=== PATIENT | female | born 1965 | race Caucasian/White ===

== ENCOUNTER 2017-11-04 12:13 | Emergency (ER) | payer MEDICAID ==
--- NOTE | 2017-11-04 12:45 | Emergency Department Record ---
History of Present Illness - General Chief complaint: ENT Stated complaint: NOSE PAIN/ EYE SWOLLEN Time Seen by Provider: 11/04/17 12:29 Source: Patient Mode of Arrival: Ambulatory Limitations: No limitations - History of Present Illness Initial comments: The patient has had R sided nose pain for 2-3 days. She woke up this AM and thought her R eye was swollen but that has resolved. She also was looking in the R nares and felt there was an infection present. She denies any fever, chills, ST, cough or ear pain. MD complaint: Other Onset/Timin -: Days(s) Location: Nose Severity: Moderate Severity scale (1-10): 3 Quality: Aching Consistency: Constant - Related Data Home Medications Medication Instructions Recorded Confirmed Last Taken Albuterol Sulfate [Ventolin Hfa] 1 - 2 puff IH .EVERY 4-6 HRS PRN 11/04/1711/04 1 Day Ago ~11/03/17 Alprazolam [Xanax] 0.5 mg PO TID 11/04/17 11/04/17 1 Day Ago ~11/03/17 Budesonide/Formoterol Fumarate 1 puff IH BID 11/04/17 11/04/17 1 Day Ago [Symbicort 80-4.5 Mcg Inhaler] ~11/03/17 Bupropion HCl [Wellbutrin Sr] 200 mg PO DAILY 11/04/17 11/04/17 1 Day Ago ~11/03/17 Fluticasone Propionate [Flonase] 2 spray EACH NARES DAILY 11/04/17 11/04/17 1 Day Ago ~11/03/17 Glipizide [Glucotrol] 10 mg PO DAILY 11/04/17 11/04/17 1 Day Ago ~11/03/17 Hydrocodone/Acetaminophen [[place] 1 each PO QID 11/04/17 11/04/17 1 Day Ago 10-325 Tablet] ~11/03/17 Insulin Glargine,Hum.rec.anlog 50 unit SQ QPM 11/04/17 11/04/17 1 Day Ago [Basaglar Kwikpen U-100] ~11/03/17 Insulin Glargine,Hum.rec.anlog 100 unit SQ QAM 11/04/17 11/04/17 1 Day Ago [Basaglar Kwikpen U-100] ~11/03/17 Levothyroxine Sodium [Synthroid] 125 mcg PO DAILY 11/04/17 11/04/17 1 Day Ago ~11/03/17 Lisinopril [Prinivil] 5 mg PO DAILY 11/04/17 11/04/17 1 Day Ago ~11/03/17 Loratadine [Claritin] 10 mg PO DAILY 11/04/17 11/04/17 1 Day Ago ~11/03/17 Naproxen [Naprosyn] 500 mg PO Q12H 11/04/17 11/04/17 1 Day Ago ~11/03/17 Sertraline HCl [Zoloft] 250 mg PO DAILY 11/04/17 11/04/17 1 Day Ago ~11/03/17 Previous Rx's Medication Instructions Recorded Doxycycline Monohydrate [Mondoxyne 100 mg PO BID #20 capsule 11/04/17 Nl] Allergies Allergy/AdvReac Type Severity Reaction Status Date / Time No Known Drug Allergies Allergy Verified 11/04/17 12:29 Travel Screening - Travel/Exposure Within Last 30 Days Have you traveled within the last 30 days?: No - Travel/Exposure Within Last Year Have you traveled outside the [place] in the last year?: No - Additonal Travel Details Have you been exposed to anyone with a communicable illness?: No - Travel Symptoms Symptom Screening: None Review of Systems Constitutional: Denies: Chills, Fever Past Medical History - SOCIAL HISTORY Smoking Status: Never smoker Alcohol Use: None Drug Use: None - RESPIRATORY Hx Asthma: Yes Hx Sleep Apnea: Yes Hx of CPAP: Yes - CARDIOVASCULAR Hx Hypertension: Yes - NEURO Hx Neuro Disorders: No - GI Hx Reflux: Yes - Hx Genitourinary Disorders: No - ENDOCRINE Hx Diabetes: Yes Hx Thyroid Disease: Yes - MUSCULOSKELETAL Hx Arthritis: Yes - PSYCH Hx Anxiety: Yes - HEMATOLOGY/ONCOLOGY Hx Anemia: No Hx Cancer: No Family Medical History Any Significant Family History?: Yes Physical Exam - General General Appearance: Alert, Oriented x3, Cooperative, No acute distress - Head Head exam: Atraumatic, Normocephalic, Normal inspection - Eye Eye exam: Normal appearance, PERRL - ENT ENT exam: Normal exam (There is tenderness near the R nasolabial fold but no swelling or erythema.), Mucous membranes moist, Normal external ear exam, Normal orophraynx, TM's normal bilaterally Nasal Exam: Normal inspection (There is no obvious intranasal abscess present. There is no swelling, erythema, or edema.). negative: Active bleeding, Discharge, Sinus tenderness Throat exam: Normal inspection. negative: Tonsillar erythema, Tonsillar exudate - Neck Neck exam: Normal inspection, Full ROM. negative: Lymphadenopathy, Meningismus , Tenderness Course Vital Signs 11/04/17 12:21 Temperature 98.5 F Pulse Rate 97 H Respiratory 16 Rate Blood Pressure 134/98 Pulse Ox 97 - Reevaluation(s) Reevaluation #1: I explained to the patient that I do not see anything in her nose to drain but that we will treat her with Doxycycline for a possible early infection. 11/04/17 12:55 Disposition Disposition: Discharge Clinical Impression: Nose pain Disposition: Home, Self-Care Condition: (2) Stable Instructions: Sinusitis (ED) Additional Instructions: Please continue the warm compresses to the painful area when possible and take the Doxycycline as directed. Please see your PCP for recheck early next week and return to the ER for any worsening symptoms. Prescriptions: Doxycycline Monohydrate [Mondoxyne Nl] 100 mg PO BID #20 capsule Forms: Patient Portal Access Time of Disposition: 12:57 Quality - Quality Measures Quality Measures: N/A - Blood Pressure Screening View Details: Yes Does Patient Have Any of the Following: No Blood Pressure Classification: Hypertensive Reading Systolic Measurement: 134 Diastolic Measurement: 98 Screening for High Blood Pressure: < Pre-Hypertensive BP, F/U Documented > [ G8950] Pre-Hypertensive Follow-up Interventions: Referral to alternative/primary care provider.
== END 2017-11-04 13:07 | disposition home or self-care (01) ==
LOC: ER 12:13
DX: J34.89 Other specified disorders of nose and nasal sinuses (principal); I10 Essential (primary) hypertension
CPT/HCPCS: 99282

== ENCOUNTER 2018-09-28 23:47 | Emergency (ER) | payer MEDICAID ==
[2018-09-28] MEDS ORDERED: MORPHINE SULFATE 10 MG/ML VIAL IVP ONE (23:53)
[2018-09-28] MEDS ORDERED: ONDANSETRON HCL IV 4 MG/2 ML VIAL IVP ONE (23:53)
[2018-09-28] MEDS ORDERED: 0.9 % SODIUM CHLORIDE 1,000 ML BAG IV ONE (23:53)
--- NOTE | 2018-09-29 00:01 | Emergency Department Record ---
History of Present Illness - General Chief complaint: Flank Pain Stated complaint: SOMETHING WRONG WITH MY BACK Time Seen by Provider: 09/28/18 23:53 Source: Patient, Family Mode of Arrival: Ambulatory Limitations: No limitations - History of Present Illness Initial comments: 52 yo female presents with right flank pain. The pain is sharp. The onset was this afternoon. No injury. The pain is gradually getting worse. It is now 8/ 10. No fevers or chills. She has some nausea and vomited. No diarrhea. No dysuria. No history or renal stones. No changes in stools or urination. No rash. The pain stays mostly local to the right flank without radiation. She has had a recent sinus infection that was treated with a course of antibiotics. She has asthma that she states is mild at this time but not gone. She still has a cough. It hurts to cough today. Tonight she did cough up a lot of greenish phlegm as well. It hurts to move and is uncomfortable in any position. No abdominal pain radiation. MD Complaint: Other (Right flank pain) -: Hour(s) Radiation: R flank Severity scale (1-10): 8 Quality: Aching, Sharp Consistency: Constant, Getting worse Improves with: None Worsens with: Movement, Other (Cough) Patient : No - Related Data Previous Rx's Medication Instructions Recorded Doxycycline Monohydrate [Mondoxyne 100 mg PO BID #20 capsule 11/04/17 ] Amoxicillin/Potassium Clav 1 tab PO BID #14 tab 09/29/18 [Augmentin 875-125 Tablet] Azithromycin [Zithromax] 250 mg PO DAILY #4 tab 09/29/18 Allergies Allergy/AdvReac Type Severity Reaction Status Date / Time No Known Drug Allergies Allergy Verified 11/04/17 12:29 Review of Systems Constitutional: Reports: Chills, Fever, Other (chills on hot flashes on an off the last day). Denies: Malaise, Weakness Eyes: Denies: Eye discharge ENT: Reports: Congestion Respiratory: Reports: Cough Cardiovascular: Denies: Chest pain, Palpitations, Syncope Endocrine: Denies: Fatigue, Polydipsia, Polyuria Gastrointestinal: Denies: Abdominal pain, Constipation, Diarrhea, Hematemesis, Hematochezia, Melena, Nausea, Vomiting Genitourinary: Denies: Dysuria, Frequency, Hematuria, Urgency Musculoskeletal: Reports: Back pain, Myalgia. Denies: Arthralgia Skin: Denies: Bruising, Change in color, Rash Neurological: Denies: Headache, Numbness, Tingling, Weakness Psychiatric: Denies: Anxiety Hematological/Lymphatic: Denies: Blood Clots, Easy bleeding, Easy bruising, Swollen glands Past Medical History - SOCIAL HISTORY Smoking Status: Never smoker Drug Use: None - RESPIRATORY Hx Asthma: Yes Hx Sleep Apnea: Yes Hx of CPAP: Yes - CARDIOVASCULAR Hx Hypertension: Yes - NEURO Hx Neuro Disorders: No - GI Hx Reflux: Yes - Hx Genitourinary Disorders: No - ENDOCRINE Hx Diabetes: Yes Hx Thyroid Disease: Yes - MUSCULOSKELETAL Hx Arthritis: Yes - PSYCH Hx Anxiety: Yes - HEMATOLOGY/ONCOLOGY Hx Anemia: No Hx Cancer: No Physical Exam - General General Appearance: Alert, Oriented x3, Cooperative, No acute distress Limitations: No limitations - Head Head exam: Atraumatic, Normal inspection - Eye Eye exam: Normal appearance. negative: Conjunctival injection, Scleral icterus - ENT ENT exam: Normal exam, Mucous membranes moist Ear exam: Normal external inspection Nasal Exam: Normal inspection Mouth exam: Normal external inspection Teeth exam: Normal inspection Throat exam: Normal inspection - Neck Neck exam: Normal inspection, Full ROM. negative: Tenderness - Respiratory Respiratory exam: Normal lung sounds bilaterally. negative: Accessory muscle use, Decreased breath sounds, Respiratory distress, Rhonchi, Stridor, Wheezes - Cardiovascular Cardiovascular Exam: Tachycardia Peripheral Pulses: 2+: Radial (R), Radial (L) - GI/Abdominal GI/Abdominal exam: Soft. negative: Distended, Guarding, Rebound, Rigid, Tenderness - Rectal Rectal exam: Deferred - exam: Deferred - Extremities Extremities exam: negative: Pedal edema - Back Back exam: Reports: CVA tenderness (R), Muscle spasm, Tenderness, Other (She holds mid to lower right flank area). Denies: CVA tenderness (L), Paraspinal tenderness, Rash noted, Vertebral tenderness - Neurological Neurological exam: Alert, Normal gait, Oriented X3, Reflexes normal - Psychiatric Psychiatric exam: Normal affect, Normal mood - Skin Skin exam: Dry, Intact, Normal color, Warm Course - Reevaluation(s) Reevaluation #1: 09/29/18 00:15 No acute changes on the CBC 09/29/18 00:24 On a recheck the patient pain level is improved. She is resting much more comfortable 09/29/18 00:53 CT scan was reviewed. No renal stones. There is right lower lobe atelectasis or infiltrate. She did note a worsening cough yesterday with chills and hot flashes throughout the day and she had started bring up "a lot" of green sputum throughout the evening. No blood in the sputum. Given her asthma has been mild recently but not gone, she was given solumedrol 125mg. She was given antibiotics as well for the lung findings on CT in the right lower lobe with green productive sputum that is new the last day. I explained that an infiltrate on diaphragm area can given her right flank pain as well. 09/29/18 00:54 09/29/18 01:28 HR improved to 94. Waiting for UA. The patient is doing well with pain controlled. 09/29/18 01:29 UA is negative. Medical Decision Making - Lab Data Result diagrams: 09/28/18 23:56 09/28/18 23:56 Disposition Disposition: Discharge Clinical Impression: Right lower lobe pneumonia, Right flank pain Disposition: Home, Self-Care Condition: (1) Good Instructions: Community Acquired Pneumonia (ED), Flank Pain (ED) Additional Instructions: Return to the ER for a recheck if worse, fever, short of breath Take the antibiotics as directed until gone Follow up on Monday as scheduled with your doctor Follow up chest X ray in the next 1-2 weeks to ensure the area is gone and not worse Prescriptions: Amoxicillin/Potassium Clav [Augmentin 875-125 Tablet] 1 tab PO BID #14 tab Azithromycin [Zithromax] 250 mg PO DAILY #4 tab Forms: Patient Portal Access Time of Disposition: :34 Quality - Quality Measures Quality Measures: N/A - Blood Pressure Screening Does Patient Have Any of the Following: Active Dx of HTN Blood Pressure Classification: Pre-Hypertensive BP Reading Systolic Measurement: 135 Diastolic Measurement: 76 Screening for High Blood Pressure: Patient Exclusion, Hx of HTN [G9744]
[2018-09-29 00:08] LABS: BASO % 0.3 % (0-6); EOS % 1.8 % (0-6); GRAN % 70.7 % (47-80); HEMATOCRIT 40.8 % (35.0-47.0); HEMOGLOBIN 12.8 gm/dl (11.6-16.0); LYMPH % 18.6 % (16-45); MEAN CORPUSCULAR HEMOGLOBIN 25.1 pg (27-33); MEAN CORPUSCULAR HGB CONC 31.4 g/dl (32-36); MEAN PLATELET VOLUME 9.7 fl (7.4-10.4); MONO % 8.6 % (0-9); PLATELET COUNT 266 K/uL (130-400); RED CELL DISTRIBUTION WIDTH 15.4 % (11.5-14.5); WHITE BLOOD COUNT W/O DIFF 11.9 K/uL (4.2-12.2)
[2018-09-29 00:26] LABS: BLOOD UREA NITROGEN 25 mg/dL (6-20); EST GLOMERULAR FILTRATION RATE > 60 mL/min
[2018-09-29 00:27] LABS: TOTAL PROTEIN 8.2 g/dL (6.6-8.7)
[2018-09-29 00:29] LABS: GLUCOSE,RANDOM 198 mg/dL (74-109)
[2018-09-29 00:32] LABS: ALB/GLOB RATIO 1.2 (1.1-1.8); ALBUMIN 4.5 g/dL (4.0-5.0); ALKALINE PHOSPHATASE 99 U/L (35-104); ALT/SGPT 18 U/L (<33); AST/SGOT 16 U/L (10.0-35.0)
[2018-09-29] MEDS ORDERED: KETOROLAC 30 MG/ML VIAL IVP ONE (00:46)
[2018-09-29] MEDS ORDERED: CEFTRIAXONE SODIUM 1 GM in 0.9 % SODIUM CHLORIDE 100ML 100 ML IVPB ONE (00:46)
[2018-09-29] MEDS ORDERED: AZITHROMYCIN 250 MG TABLET PO ONE (00:46)
[2018-09-29] MEDS ORDERED: METHYLPREDNISOLONE PF 125MG/VIAL IVP ONE (00:48)
[2018-09-29 01:19] LABS: URINE APPEARANCE CLEAR; URINE BILIRUBIN NEGATIVE (NEGATIVE); URINE BLOOD NEGATIVE (NEGATIVE); URINE COLOR YELLOW; URINE GLUCOSE (UA) NEGATIVE (NEGATIVE); URINE KETONE NEGATIVE (NEGATIVE); URINE LEUKOCYTE ESTERASE SMALL (NEGATIVE); URINE NITRITE NEGATIVE (NEGATIVE); URINE PROTEIN NEGATIVE (NEGATIVE); URINE UROBILINOGEN 0.2 E.U./dL (0.20 - 1.00)
[2018-09-29 01:29] LABS: URINE RBC 0 - 2 (NONE SEEN); URINE SQUAMOUS EPITHELIAL CELL 0 - 2 /hpf; URINE WBC 0 - 2 (0-2/hpf)
--- NOTE | 2018-10-01 10:56 | CT SCAN REPORT ---
EXAM: CT OF THE ABDOMEN AND PELVIS WITHOUT CONTRAST HISTORY: RIGHT FLANK PAIN FOR A DAY. HYSTERECTOMY. TECHNIQUE: Axial CT scan of the abdomen and pelvis was performed without oral or IV contrast. A preliminary report was provided by [facility]. Comparison: No prior abdomen or pelvis CT with which to compare. FINDINGS: No calcified gallstones are seen within the gallbladder. No intrarenal calculi seen in either kidney. There is no hydronephrosis or hydroureter on either side with no definite ureteral calculus seen on either side and no bladder calculus evident. The uterus is not identified consistent with the surgical history. Evaluation of the bowel and viscera is very limited without oral or IV contrast. Given this limitation, no definite hepatic or splenic mass seen. The spleen size is probably at about the upper limits of normal. No definite adrenal, pancreatic, or renal mass identified. The appendix is well seen and appears negative with no appendicitis evident. There is some minor streaky atelectasis or infiltrate in both lung bases posteriorly, right greater than left. No free intraperitoneal air or free intraperitoneal fluid identified. IMPRESSION: 1. NO DEFINITE URINARY TRACT CALCULI OR HYDRONEPHROSIS EVIDENT. 2. THE APPENDIX IS NEGATIVE. NO FREE AIR OR FREE FLUID EVIDENT. 3. MINOR BIBASILAR ATELECTASIS OR INFILTRATE, RIGHT GREATER THAN LEFT. 4. THE SPLEEN SIZE IS AT ABOUT THE UPPER LIMITS OF NORMAL. JOB NUMBER: [id number] MTDD
== END 2018-09-29 01:56 | disposition home or self-care (01) ==
LOC: ER 23:47
DX: J18.8 Other pneumonia, unspecified organism (principal); R10.31 Right lower quadrant pain; M54.5 Low back pain; I10 Essential (primary) hypertension
CPT/HCPCS: 99284 ×2; 96365; 96375; 85025; 80053; 81001; 74176; J1885; J2405; J2270; J2930; J7030

== ENCOUNTER 2019-06-15 17:12 | Emergency (ER) | payer MEDICAID ==
--- NOTE | 2019-06-15 18:14 | Emergency Department Record ---
History of Present Illness - General Chief complaint: Eye Problem Stated complaint: R EYE AREA SWOLLEN Time Seen by Provider: 06/15/19 17:29 Source: Patient Mode of Arrival: Ambulatory - History of Present Illness Initial comments: left eyelid inflamation and purulent discharge and she is getting over URI symptoms chief complaint: Eye redness Onset/Timin -: Days(s) Onset Description: Gradual Location: Right eye Place: Home If Injury: None Eye Symptoms: Burning, Discharge, Itching, Pain, Redness Severity scale (1-10): 5 If Pain, Quality: Burning Consistency: Constant Context: Other Associated Symptoms: None Treatments Prior to Arrival: Other - Related Data Visual acuity (L) = 20/: 40 Visual acuity (R) = 20/: 40 With correction: No Home Medications Medication Instructions Recorded Confirmed Last Taken Brimonidine Tartrate [Lumify] 2.5 ml OP DAILY 06/15/19 06/15/19 Unknown Brinzolamide/Brimonidine Tart 8 ml OP DAILY 06/15/19 06/15/19 Unknown [Simbrinza 1%-0.2% Eye Drops] Allergies Allergy/AdvReac Type Severity Reaction Status Date / Time No Known Drug Allergies Allergy Verified 11/04/17 12:29 Travel Screening - Travel/Exposure Within Last 30 Days Have you traveled within the last 30 days?: No Review of Systems Reviewed: No additional complaints except as noted below Constitutional: Reports: As per HPI. Denies: Chills, Fever, Malaise, Night sweats, Weakness, Weight change Eyes: Reports: As per HPI. Denies: Eye discharge, Eye pain, Photophobia, Vision change ENT: Reports: As per HPI. Denies: Congestion, Dental pain, Ear pain, Epistaxis, Hearing loss, Throat pain Respiratory: Reports: As per HPI. Denies: Cough, Dyspnea, Hemoptysis, Stridor, Wheezes Cardiovascular: Reports: As per HPI. Denies: Arrhythmia, Chest pain, Dyspnea on exertion, Edema, Murmurs, Orthopnea, Palpitations, Paroxysmal nocturnal dyspnea, Rheumatic Fever, Syncope Endocrine: Reports: As per HPI. Denies: Fatigue, Heat or cold intolerance, Polydipsia, Polyuria Gastrointestinal: Reports: As per HPI. Denies: Abdominal pain, Constipation, Diarrhea, Hematemesis, Hematochezia, Melena, Nausea, Vomiting Genitourinary: Reports: As per HPI. Denies: Abnormal menses, Discharge, Dyspareunia, Dysuria, Frequency, Hematuria, Incontinence, Retention, Urgency Musculoskeletal: Reports: As per HPI. Denies: Arthralgia, Back pain, Gout, Joint swelling, Myalgia, Neck pain Skin: Reports: As per HPI. Denies: Bruising, Change in color, Change in hair/nails, Lesions, Pruritus, Rash Neurological: Reports: As per HPI. Denies: Abnormal gait, Confusion, Headache, Numbness, Paresthesias, Seizure, Tingling, Tremors, Vertigo, Weakness Psychiatric: Reports: As per HPI. Denies: Anxiety, Auditory hallucinations, Depression, Homicidal thoughts, Suicidal thoughts, Visual hallucinations Hematological/Lymphatic: Reports: As per HPI. Denies: Anemia, Blood Clots, Easy bleeding, Easy bruising, Swollen glands Past Medical History - SOCIAL HISTORY Smoking Status: Never smoker - RESPIRATORY Hx Respiratory Disorders: Yes Hx Asthma: Yes Hx Sleep Apnea: Yes Hx of CPAP: Yes - CARDIOVASCULAR Hx Cardio Disorders: Yes Hx Hypertension: Yes - NEURO Hx Neuro Disorders: No - GI Hx GI Disorders: Yes Hx Reflux: Yes - Hx Genitourinary Disorders: No - ENDOCRINE Hx Endocrine Disorders: Yes Hx Diabetes: Yes Hx Thyroid Disease: Yes - MUSCULOSKELETAL Hx Musculoskeletal Disorders: Yes Hx Arthritis: Yes - PSYCH Hx Psych Problems: Yes Hx Anxiety: Yes - HEMATOLOGY/ONCOLOGY Hx Hematology/Oncology Disorders: No Hx Anemia: No Hx Cancer: No Family Medical History Any Significant Family History?: Yes Family Hx Comment (NOT TO BE USED IN PLACE OF ITEMS BELOW): Dad w/gout Hx Cancer: Grandparents Hx HTN: Grandparents Physical Exam - General General Appearance: Alert, Oriented x3, Cooperative, No acute distress - Head Head exam: Normal inspection - Eye Eye exam: PERRL, Conjunctival injection Pupils: Normal accommodation With correction: No - ENT ENT exam: Normal exam, Mucous membranes moist, Normal external ear exam, Normal orophraynx, TM's normal bilaterally Ear exam: Normal external inspection. negative: External canal tenderness Nasal Exam: Normal inspection. negative: Discharge, Sinus tenderness Mouth exam: Normal external inspection, Tongue normal Teeth exam: Normal inspection. negative: Dental caries Throat exam: Normal inspection. negative: Tonsillar erythema, Tonsillar exudate - Neck Neck exam: Normal inspection, Full ROM. negative: Tenderness - Respiratory Respiratory exam: Normal lung sounds bilaterally. negative: Respiratory distress - Cardiovascular Cardiovascular Exam: Regular rate, Normal rhythm, Normal heart sounds - GI/Abdominal GI/Abdominal exam: Soft, Normal bowel sounds. negative: Tenderness - Rectal Rectal exam: Deferred - exam: Deferred - Extremities Extremities exam: Normal inspection, Full ROM, Normal capillary refill. negative: Tenderness - Back Back exam: Reports: Normal inspection, Full ROM. Denies: Muscle spasm, Rash noted, Tenderness - Neurological Neurological exam: Alert, Normal gait, Oriented X3, Reflexes normal - Psychiatric Psychiatric exam: Normal affect, Normal mood - Skin Skin exam: Dry, Intact, Normal color, Warm Course Vital Signs 06/15/19 17:17 Temperature 98.0 F Pulse Rate 108 H Respiratory 18 Rate Blood Pressure 147/83 Pulse Ox 97 Disposition Clinical Impression: Conjunctivitis Qualifiers: Conjunctivitis type: acute Acute conjunctivitis type: bacterial Laterality: left Qualified Code(s): H10.32 - Unspecified acute conjunctivitis, left eye Disposition: Home, Self-Care Condition: (1) Good Instructions: Conjunctivitis (ED) Additional Instructions: follow up with family in 5 days Time of Disposition: 18:26 Quality - Quality Measures Quality Measures: N/A - Blood Pressure Screening Does Patient Have Any of the Following: No Blood Pressure Classification: Pre-Hypertensive BP Reading Systolic Measurement: 147 Diastolic Measurement: 83 Screening for High Blood Pressure: < Pre-Hypertensive BP, F/U Documented > [G8950] Pre-Hypertensive Follow-up Interventions: Referral to alternative/primary care provider.
[2019-06-15] MEDS ORDERED: SULFACETAMIDE SODIUM 15ML BTL OPTH ONE (18:22)
== END 2019-06-15 18:34 | disposition home or self-care (01) ==
LOC: ER 17:12
DX: H10.32 Unspecified acute conjunctivitis, left eye (principal)
CPT/HCPCS: 99282